=== PATIENT | male | born 2000 | race Caucasian/White ===

== ENCOUNTER → 2019-02-12 | Outpatient (CLI) | payer BC ==
[2019-02-12 16:50] LABS: BASO % 0.5 % (0.0-1.0); EOS # 0.1 10^3/uL (0.0-0.5); EOS % 1.7 % (0.0-3.0); HEMATOCRIT 45.7 % (42.0-52.0); HEMOGLOBIN 15.3 g/dl (13.5-17.5); LYMPH # 3.2 10^3/uL (1.5-5.0); LYMPH % 40.6 % (24.0-44.0); MEAN CORPUSCULAR HEMOGLOBIN 27.5 pg (27.0-33.0); MEAN CORPUSCULAR HGB CONC 33.5 g/dl (32.0-36.5); MONO # 0.9 10^3/uL (0.0-0.8); NEUTROPHILS # 3.6 10^3/uL (1.5-8.5); NEUTROPHILS % 45.7 % (36.0-66.0); PLATELET COUNT, AUTOMATED 251 10^3/uL (150-450); RED BLOOD COUNT 5.57 10^6/uL (4.30-6.10); WHITE BLOOD COUNT 7.9 10^3/uL (4.0-10.0)
[2019-02-12 16:52] LABS: ALT/SGPT 86 U/L (12-78); BILIRUBIN,DIRECT 0.1 MG/DL (0.0-0.2); BILIRUBIN,TOTAL 0.4 MG/DL (0.2-1.0); BLOOD UREA NITROGEN 15 MG/DL (7-18); CARBON DIOXIDE LEVEL 31 MEQ/L (21-32); CHLORIDE LEVEL 104 MEQ/L (98-107); CHOLESTEROL LEVEL 151 MG/DL (<200); CHOLESTEROL RISK RATIO 3.682 (<5); CREATININE FOR GFR 0.91 MG/DL (0.70-1.30); GLUCOSE, FASTING 87 MG/DL (70-100); HDL CHOLESTEROL 41 MG/DL (>40); LDL CHOLESTEROL 76 MG/DL (<100); NON-HDL-C 110 MG/DL; POTASSIUM SERUM 4.4 MEQ/L (3.5-5.1); SODIUM LEVEL 140 MEQ/L (136-145); TOTAL PROTEIN 7.6 GM/DL (6.4-8.2); TRIGLYCERIDES LEVEL 170 MG/DL (<150)
== END ==
LOC: M WUC 12:37
PROVIDERS: ATTEND Specialist
DX: Z00.129 Encounter for routine child health examination without abnormal findings (principal)

== ENCOUNTER 2019-07-28 15:02 | Emergency (ER) | payer BC ==
[~2019-07-28] VITALS: Ht 180.3 cm; Wt 114.5 kg
[2019-07-28] MEDS ORDERED: tylenol 2 tabs (15:12)
[2019-07-28] MEDS ORDERED: ATOM100C6 (15:12)
[2019-07-28] MEDS ORDERED: FAMOTIDINE INJ 20MG/2ML VIAL (S0028 PER 1) IVP ONE (15:45)
[2019-07-28] MEDS ORDERED: ONDANSETRON 4MG/2ML VIAL IV ONE (15:45)
[2019-07-28] MEDS ORDERED: NS 1,000 ML IV SCH (15:45)
[2019-07-28 16:36] LABS: INR 1.13; PROTHROMBIN TIME 14.2 SECONDS (11.8-14.0)
[2019-07-28 17:03] LABS: BASO # 0.1 10^3/uL (0.0-0.2); BASO % 0.4 % (0.0-1.0); HEMATOCRIT 46.9 % (42.0-52.0); HEMOGLOBIN 16.3 g/dl (13.5-17.5); LYMPH # 1.6 10^3/uL (1.5-5.0); LYMPH % 9.3 % (24.0-44.0); MEAN CORPUSCULAR HEMOGLOBIN 27.8 pg (27.0-33.0); MEAN CORPUSCULAR HGB CONC 34.8 g/dl (32.0-36.5); MEAN CORPUSCULAR VOLUME 79.9 fl (80.0-96.0); MONO # 0.9 10^3/uL (0.0-0.8); MONO % 5.3 % (0.0-5.0); NEUTROPHILS # 14.2 10^3/uL (1.5-8.5); NEUTROPHILS % 83.6 % (36.0-66.0); PLATELET COUNT, AUTOMATED 287 10^3/uL (150-450); RED BLOOD COUNT 5.87 10^6/uL (4.30-6.10)
[2019-07-28] MEDS ORDERED: MAGNESIUM CITRATE 300 ML BTL PO ONE (17:15)
[2019-07-28 17:19] VITALS: BP 142/68
[2019-07-28 17:26] LABS: ALBUMIN 4.8 GM/DL (3.2-5.2); ALT/SGPT 40 U/L (12-78); BILIRUBIN,DIRECT 0.2 MG/DL (0.0-0.2); BILIRUBIN,TOTAL 0.8 MG/DL (0.2-1.0); BLOOD UREA NITROGEN 12 MG/DL (7-18); CALCIUM LEVEL 9.7 MG/DL (8.5-10.1); CARBON DIOXIDE LEVEL 24 MEQ/L (21-32); CHLORIDE LEVEL 101 MEQ/L (98-107); CREATININE FOR GFR 0.87 MG/DL (0.70-1.30); GLUCOSE, FASTING 97 MG/DL (70-100); LIPASE 72 U/L (73-393); POTASSIUM SERUM 3.9 MEQ/L (3.5-5.1); SODIUM LEVEL 134 MEQ/L (136-145); TOTAL PROTEIN 8.7 GM/DL (6.4-8.2)
--- NOTE | 2019-07-28 23:13 | REP ---
REASON FOR EXAM: Right lower quadrant pain. There are no priors for comparison. The lack of intravenous and oral bowel preparatory contrast decreases the sensitivity of the exam. The lung bases are clear. Limited evaluation of the solid intra-abdominal organs and gallbladder shows no gross abnormalities. Limited evaluation of the pancreas, adrenal glands, and kidneys shows no gross abnormalities. Limited evaluation of the abdominal aorta and para-aortic regions shows no gross abnormalities. There is an incidental splenule. No free fluid or free air is seen in the abdomen or pelvis. Limited evaluation of the intra-abdominal and intrapelvic bowel loops and their mesenteries shows no gross abnormalities. There is no free fluid or free air in the abdomen or pelvis. There is no intra-abdominal or intrapelvic mass or adenopathy. The osseous structures are within normal limits. IMPRESSION: CT findings are within normal limits, although the examination if limited as described above. Electronically Signed by Crow Woo DO 07/29/2019 08:07 A
== END 2019-07-28 17:29 | disposition home or self-care (01) ==
LOC: M ED 15:02
DX: K59.00 Constipation, unspecified (principal); R11.0 Nausea; F90.9 Attention-deficit hyperactivity disorder, unspecified type; Z79.899 Other long term (current) drug therapy
CPT/HCPCS: 74176; 80048; 80076; 81001; 83690; 85025; 85610; 86850; 86900; 86901; 96361; 96374; 96375; 99284; J2405